=== PATIENT | male | born 1965 | race Caucasian/White ===

== ENCOUNTER 2023-11-25 10:03 | Outpatient (CLI) | payer BC, SELFPAY ==
--- NOTE | ~2023-11-25 | MR_ITS ---
EXAMINATION: MR renal wo/w con DATE: 11/25/2023 10:54 INDICATION: Right renal mass TECHNIQUE: Magnetic resonance imaging (MRI) of the abdomen was performed without and with 20 mL Multi faina intravenous contrast. Sequences included coronal T2-weighted SS-FSE, coronal and axial FS 2D-F IESTA, axial STIR FSE, axial T2-weighted SS-FSE, axial T2-weighted FS SS-FSE, axial diffusion-weighte d SE, axial dual-echo T1-weighted FSPGR, and axial and coronal T1-weighted LAVA. Postcontrast axial T 1-weighted LAVA images were obtained in a time course. Postcontrast coronal T1-weighted LAVA images w ere obtained. COMPARISON: CT dated 10/31/2023 FINDINGS: Heart size is normal. No pericardial or pleural effusion. A millimeter T2 hyperintense nonenhancing c yst in the left hepatic lobe. Gallbladder, spleen, pancreas and bilateral adrenal glands are normal. There are bilateral T2 hyperintense nonenhancing simple renal cysts. There is a 2.7 cm T2 hypointense , T1 hyperintense nonenhancing proteinaceous/hemorrhagic cyst in the right kidney which corresponds t o the lesion of concern on prior CT. Visualized portions of bowels are unremarkable. No pathologicall y enlarged abdominal or upper pelvic lymphadenopathy. There is mild enhancement at the previously not ed, now subacute fracture of the left side of the bifurcated xiphoid process. Bone marrow signal is o therwise normal throughout. IMPRESSION: 1. Bilateral renal cysts including a 2.7 cm complex hemorrhagic/proteinaceous cyst in the right kidne y which corresponds to the lesion of concern on prior CT. Reviewed, dictated and finalized at location A. IMPRESSION: 1. Bilateral renal cysts including a 2.7 cm complex hemorrhagic/proteinaceous c yst in the right kidney which corresponds to the lesion of concern on prior CT.
== END 2023-11-25 10:04 ==
PROVIDERS: PCP Nurse Practitioner Family; Visit Provider Nurse Practitioner Family
DX: N28.1 Cyst of kidney, acquired (principal)
CPT/HCPCS: 74183; A9577